=== PATIENT | female | born 1990 | race African-American/Black ===

== ENCOUNTER 2016-10-22 17:59 | Emergency (ER) | payer SELFPAY ==
[~2016-10-22] VITALS: Ht 180.3 cm; Wt 73.0 kg
[2016-10-22 18:22] VITALS: BP 158/100
== END 2016-10-22 19:48 | disposition left against medical advice (07) ==
LOC: ER 17:59
DX: R51 Headache (principal); Z53.21 Procedure and treatment not carried out due to patient leaving prior to being seen by health care provider